=== PATIENT | male | born 1985 | race Caucasian/White ===

== ENCOUNTER 2019-06-05 18:37 | Emergency (ER) | payer SELFPAY ==
--- NOTE | 2019-06-05 18:45 | ED.DENTAL ---
HPI - Dental/Oral General Chief complaint: Dental/Oral Stated complaint: swelling in cheek, possible abscess Time Seen by Provider: 06/05/19 18:45 Source: patient and RN notes reviewed Mode of arrival: ambulatory Limitations: no limitations
[2019-06-05 18:50] VITALS: BP 144/98; PULSE 118; RESP 18; TEMP 37.1; O2SAT 99
--- NOTE | 2019-06-05 18:55 | ED.SKABFB ---
HPI - Skin/Abscess/Foreign Bdy General Chief complaint: Skin/Abscess/Foreign Body Stated complaint: swelling in cheek, possible abscess Time Seen by Provider: 06/05/19 18:45 Source: patient and RN notes reviewed Mode of arrival: ambulatory Limitations: no limitations History of Present Illness HPI narrative: 33-year-old white male presents after being treated for what he thought was a dental abscess. He was on amoxicillin and left cheek seemed to go down somewhat. He then attempted to express pus from it. He said it then swelled up on his left cheek with erythema and severe tenderness. complaint: abscess/boil Onset (ago): day(s) (2) Location: face Severity: severe Quality: stabbing and aching Pain Consistency: constant Relieving factors: none Exacerbating factors: palpation Context: recent antibiotic Associated symptoms: denies other symptoms Treatments prior to arrival: attempted to drain pus at home Related Data Home Medications Medication Instructions Recorded Confirmed amoxicillin 500 mg PO TID 06/05/19 06/05/19 Allergies Allergy/AdvReac Type Severity Reaction Status Date / Time No Known Allergies Allergy Verified 06/05/19 19:13 Review of Systems Review of Systems: All systems reviewed & are unremarkable except as noted in HPI and below Constitutional: Constitutional: Denies chills and Denies fever(s) PMFSH Past Medical History Medical History (Updated 06/05/19 @ 19:19 by Roby Price MD) No significant medical problems Surgical History Surgical History (Updated 06/05/19 @ 19:17 by Roby Price MD) History of cholecystectomy Social History Social History (Updated 06/05/19 @ 19:16 by Roby Price MD) Smoking packs per day: 1 Smoking cigarettes per day: 20.0 Smoking status: Current every day smoker Tobacco type: cigarettes Alcohol intake: current Alcohol use details: Occasional Substance use: never Exam Const: General: cooperative, healthy appearing, comfortable, well developed, alert, awake and anxious Nutritional Appearance: average body habitus and well nourished Orientation/consciousness: patient oriented x3 Limitations: no limitations HENMT: Ears: external ears normal General nose exam: Normal external nose present Face and sinus: normal facial exam Mouth: Yes Normal oral and palatal mucosa present and Yes moist mucous membranes Teeth and gingiva: dentition normal and gingiva normal Throat: posterior oropharynx normal Eyes: General: appearance normal, both eyes and all related structures Pupils: Equal, round and reactive pupils present EOM: EOMs intact bilaterally Neck: Neck: normal visual inspection, full ROM and lymphadenopathy left posterior cervical Resp: Effort & Inspection: normal respiratory effort and able to speak in complete sentences Auscultation: clear to auscultation bilaterally Cardio: Rate: regular rate Rhythm: regular rhythm GI: Inspection: normal to inspection GI Palp: No abdominal tenderness Auscultation: normal bowel sounds Back/Spine/Pelvis: Cervical Spine: cervical ROM normal Thoracic/Lumbar Spine: thoraco-lumbar ROM normal Skin: General skin exam: normal color, erythema and fluctuance (3 cm abscess on left cheek) Course Vital Signs Vital signs: Vital Signs Temperature 37.1 C 06/05/19 18:50 Pulse Rate 118 H 06/05/19 18:50 Respiratory Rate 18 06/05/19 18:50 Blood Pressure 144/98 H 06/05/19 18:50 Pulse Oximetry 99 06/05/19 18:50 Temperature 37.1 C 06/05/19 18:50 Pulse Rate 118 H 06/05/19 18:50 Respiratory Rate 18 06/05/19 18:50 Blood Pressure 144/98 H 06/05/19 18:50 Pulse Oximetry 99 06/05/19 18:50 Procedures Abscess I/D face: Date of Incision: 06/05/19 Time of Incision: 19:10 Side (if applicable): left Local Anesthetic: lidocaine 1% and with epi Amount of anesthesia used (mL): 3 Technique: incised with #11 blade Irrigatio
[2019-06-05] MEDS: CLINDAMYCIN HCL 150 MG CAP 300 MG PO (19:22)
== END 2019-06-05 19:30 | disposition home or self-care (01) ==
PROVIDERS: Emergency Provider Emergency Medicine; PCP Family Medicine
DX: L02.01 Cutaneous abscess of face (principal)
CPT/HCPCS: 10060; 87070; 87077; 87186; 87205; 99283; A9270